=== PATIENT | male | born 1940 | race Caucasian/White ===

== ENCOUNTER → 2017-11-03 | Outpatient (CLI) | payer MEDICARE ==
[~2017-11-03] MED LIST: ALPH600C PO; CYAN100 PO; DILT240C44 PO; GABA400C5 PO; MULTTAB67 PO; NEXI40CA PO; VITA100T10 PO
--- NOTE | 2017-11-03 11:05 | RADRPT ---
EXAM DATE/TIME: 11/03/2017 10:39 [place] COMPARISON: No previous studies available for comparison. INDICATIONS : Evaluate for pneumonia, pneumothorax, and communicable disease. Pre op for right shoulder repair. MEDICAL HISTORY : Cardiovascular disease. SURGICAL HISTORY : Pacemaker. ENCOUNTER: Initial ACUITY: 1 day PAIN SCORE: 0/10 LOCATION: Bilateral chest FINDINGS: PA and lateral views of the chest demonstrate the lungs to be symmetrically aerated without evidence of mass, infiltrate or effusion. The cardiomediastinal contours are unremarkable. Osseous structure s are intact. CONCLUSION: No acute disease. Kenrick Martinez MD on November 03, 2017 at 11:03 Board Certified Radiologist. This report was verified electronically.
[2017-11-03 11:37] LABS: AUTOMATED NEUTROPHIL # 5.9 TH/MM3 (1.8-7.7); BASOPHIL % 0.4 % (0.0-2.0); EOSINOPHIL # 0.1 TH/MM3 (0-0.4); EOSINOPHIL % 1.7 % (0.0-4.0); HEMATOCRIT 42.1 % (39.0-51.0); HEMOGLOBIN 14.8 GM/DL (13.0-17.0); LYMPH % 15.9 % (9.0-44.0); LYMPHOCYTE # 1.3 TH/MM3 (1.0-4.8); MEAN CELL VOLUME 87.1 FL (80.0-100.0); MEAN CORPUSCULAR HEMOGLOBIN 30.5 PG (27.0-34.0); MEAN PLATELET VOLUME 7.8 FL (7.0-11.0); MONO % 7.6 % (0.0-8.0); MONOCYTE # 0.6 TH/MM3 (0-0.9); NEUT % 74.4 % (16.0-70.0); PLATELET COUNT 228 TH/MM3 (150-450); RED BLOOD COUNT 4.84 MIL/MM3 (4.50-5.90); RED CELL DISTRIBUTION WIDTH 14.4 % (11.6-17.2); WHITE BLOOD COUNT 7.9 TH/MM3 (4.0-11.0)
[2017-11-03 11:39] LABS: BILIRUBIN, URINE NEG (NEG); BLOOD, URINE NEG (NEG); GLUCOSE,URINE NEG (NEG); HYALINE CAST, URINE 1 /lpf (RARE); KETONE, URINE NEG (NEG); MUCUS URINE FEW /lpf (OCC); NITRITE,URINE NEG (NEG); PH, URINE 6.5 (5.0-8.5); SQUAMOUS EPITHELIAL CELL URINE <1 /hpf (0-5); URINE COLOR YELLOW (YELLW/STRAW); URINE LEUKOCYTE ESTERASE TRACE (NEG)
[2017-11-03 11:45] LABS: PROTHROMBIN TIME - PATIENT 10.4 SEC (9.8-11.6)
[2017-11-03 11:56] LABS: BICARBONATE 29.6 MEQ/L (21.0-32.0); CALCIUM 9.2 MG/DL (8.5-10.1); CREATININE 1.09 MG/DL (0.60-1.30)
== END ==
LOC: CPRE 09:40
PROVIDERS: ATTEND Orthopaedic Surgery
DX: Z01.812 Encounter for preprocedural laboratory examination (principal); Z01.811 Encounter for preprocedural respiratory examination; M75.121 Complete rotator cuff tear or rupture of right shoulder, not specified as traumatic; M19.011 Primary osteoarthritis, right shoulder
CPT/HCPCS: 36415; 71046; 80048; 81001; 85025; 85610

== ENCOUNTER → 2017-11-19 | Day surgery (SDC) | payer MEDICARE ==
--- NOTE | 2017-11-15 14:24 | MH ---
cc: MASON GRULLON M.D. DATE OF ADMISSION: 11/19/2017 ADMITTING DIAGNOSIS Complete rotator cuff tear of the right shoulder, acromioclavicular arthrosis right shoulder, glenohumeral arthrosis right shoulder, pain right shoulder. HISTORY OF PRESENT ILLNESS The patient is a 77-year-old white male who has experienced almost a 6-month history of pain involving his right shoulder. He associated the onset of his symptoms with increased activity at home when he was involved in cleaning up following the events of [place]. He had sustained a lifting stress while trying to move a gas tank, being uncertain as to the actual weight of the container but being aware of generalized soreness about the shoulder area. He initiated physical therapy intervention as a self-referral that he had completed, being unable to appreciate any complete resolution of his shoulder discomfort. He was later seen by the undersigned physician in September of this year and at that time reported ongoing pain about the shoulder with limited mobility, especially with overhead posturing of his right hand. He had been taking Gabapentin for a history of peripheral neuropathy of undetermined etiology, but otherwise reported no prior history of problems involving his right shoulder area. His x-ray studies at that time were without evidence of acute bony abnormality. There was some minimal hypertrophic reaction about the inferior margin of the articular surface of the humeral head and minimal sclerotic reaction about the greater tuberosity. There was preservation of the subacromial space. The patient elected to proceed with additional diagnostic evaluation which included a CT scan of the right shoulder with contrast, the results of which identified a prominent full-thickness distal supraspinatus tendon tear measuring 3 cm in medial to lateral dimension and 2.4 cm in anterior to posterior dimension. There was moderately severe acromioclavicular joint arthrosis and glenohumeral joint arthrosis with moderately severe central chondromalacia. The patient remained symptomatic with pain generalized about the shoulder area for which the findings of the scan were reviewed and treatment options discussed. The pros and cons of continuing with conservative management versus operative intervention that would involve an acromioplasty of the right shoulder with an attempted mini open rotator cuff repair versus reverse shoulder arthroplasty. The pluses and minuses of each of these surgical procedures was reviewed with emphasis being made that the decision to proceed with surgery would be left entirely to the patient's discretion. At that time the patient indicated his preference for the acromioplasty and the attempted rotator cuff repair in the hope that it might be successfully repaired. In compliance with his wishes he has currently been scheduled for admission in order that the above be accomplished. He is right-hand dominant. PAST MEDICAL HISTORY/HOSPITALIZATIONS AND SURGERIES Have included: 1. Right total knee arthroplasty. 2. Pacemaker insertion. 3. Tonsillectomy. 4. Appendectomy. 5. Left cataract excision with intraocular lens implants. 6. Colonoscopy. MEDICAL ILLNESSES 1. Heart disease. 2. Acid reflux. 3. Peripheral neuropathy of undetermined etiology. MEDICATION His current medications: 1. Diltiazem 240 mg daily. 2. Nexium one daily. 3. Gabapentin 400 mg daily. 4. Vitamin B 600 mg daily. 5. Vitamin B12 100 mg daily. 6. Alpha lipoic acid 600 mg twice daily. 7. Multivitamin tablet daily. ALLERGIES The patient denies any known drug allergies. REVIEW OF SYSTEMS He wears glasses for reading purposes. Denies headache, seizure or syncope. No sinus congestion or epistaxis. Diminished auditory acuity. No tinnitus, bleeding gums or dysphagia. Complete upper dental caps, no cough, shortness of breath, upper respiratory infection, pneumonia or tuberculosis. No angina. He is status post pacemaker insertion. Appetite good, bowel movements are regular. There is a history of hiatal hernia. No hepatitis, gallbladder disease, ulcers or hemorrhoids. No urinary tract infection. No kidney stones. Positive history for benign prostatic hypertrophy. No fractures. No psychiatric illness. Remaining review of systems is unremarkable and noncontributory. FAMILY HISTORY 21 years, 55 years of age and described as being in good health. He has one son indicated to be in good health. Family history is otherwise positive for prostate cancer. 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 He completed a high school education. He denies active use of tobacco since 2000 but had been a 40 pack-year user prior to that time. Ethanol consumption on a very rare occasion in the form of a glass of wine. PHYSICAL EXAMINATION Height 6 feet, weight 199 pounds. An alert, oriented and responsive 77-year-old white male who sits quietly upon the examination table with no obvious distress. HEENT: Pupils are equally round and reactive to light. Extraocular movements full. Sclerae clear. External nares clear. External auditory canals clear. Semi edentulous in both maxillary and mandibular distribution with dental bridge in place in the maxillary region. Mucous membranes pink and moist. Pharynx clear. NECK: Supple. Active range of motion without appreciable pain. Carotid pulse palpable bilaterally. Trachea midline. Thyroid without enlargement. LUNGS: Clear to auscultation and percussion. No CVA tenderness. No discomfort throughout the dorsal lumbar spine. HEART: Regular rhythm. No murmur or gallop. ABDOMEN: Abdomen is soft, nontender. Bowel sounds present. RECTAL: Per primary care physician. EXTREMITIES: Right shoulder, there is no localizing tenderness about the shoulder area. The patient demonstrates obvious effort and discomfort as he attempts to actively elevate his right hand above his head which he is able to accomplish. Similar effort is noted with internal rotation to the posterior waist level. Cross-arm positioning of right hand to left shoulder unremarkable. No sensation of crepitation or instability about the glenohumeral joint. Drop arm test is minimally positive. Bach sign positive. Weakness of external rotation. Belly press negative. Title Manager strength intact. Sensory intact. NEUROLOGIC: Cranial nerves II-XII grossly intact. IMPRESSION Complete rotator cuff tear right shoulder, acromioclavicular arthrosis right shoulder, glenohumeral joint arthrosis right shoulder, pain right shoulder. PLAN Acromioplasty right shoulder with an attempt at mini open rotator cuff repair. The nature of the planned surgical procedure, the potential complications and risks associated, the expectations of surgery and the consent form were thoroughly reviewed with the patient in the presence of his prior to admission to the hospital. Kenrick has indicated his full understanding regarding all of the above and given consent to proceed with treatment as outlined. Medical evaluation and clearance for surgery will be completed by his primary care physician Dr. Edmonds, cardiology clearance per Dr. Harrington. Mason Grullon MD NBS/TLL /1:42 PM /1:55 PM
[~2017-11-19] VITALS: Ht 182.9 cm; Wt 91.7 kg
[~2017-11-19] MED LIST changes: +*ONDANSETRON 4 MG VIAL PERIprocedural Use ONLY ONE; +ACETAMINOPHEN 1000 MG/100 ML 100 ML IV ONE; +ACETAMINOPHEN/HYDROcodone 325 MG/5 MG TAB PO PRN; +BUPIVACAINE HCL PF 0.5% 30 ML VIAL ONE; +BUPIVACAINE/EPINEPHRINE 0.25% 50 ML VIAL ONE; +CHLORHEXIDINE GLUCONATE 2 % 1 PACK (2 CLOTHS) TOPICAL PRN; +DEXAMETHASONE SOD PHOS 4 MG/ML VIAL IV ONE; +DO NOT ADM ANY ANTICOAGULANT DRUGS PRN; +FAT EMULSION 20% INJ 0 ML ONE; +GLYCOPYRROLATE 1 MG/5 ML SYRINGE IV PUSH ONE; +LACTATED RINGER'S 1000 ML IV PRN; +LIDOCAINE HCL 1% PF 5 ML AMPULE ONE; +LIDOCAINE HCL 1% PF 5 ML SYRINGE OTHER ONE; +METOPROLOL TARTRATE 25 MG TAB PO PRN; +MORPHINE SULFATE 10 MG/ML INJ IM PRN; +NEOSTIGMINE 5 MG/5 ML SYRINGE IV PUSH ONE; +ONDANSETRON HCL 4 MG/2 ML VIAL IV PUSH ONE; +PHENYLEPH/NS 1000 MCG/10 ML SYR IV ONE; +POVIDONE IODINE 5% (ANTISEPSIS KIT) 4 APPLICATIONS EACH NARE PRN; +POVIDONE IODINE 7.5% SCRUB 118 ML BOTTLE TOPICAL SCH; +PROMETHAZINE INJ 25 MG/ML VIAL IM PRN; +PROPOFOL 200 MG/20 ML AMP IV ONE; +ROCURONIUM INJ 50 MG/5 ML SYRINGE IV PUSH ONE; +SODIUM CHLORID 0.9% 500 ML IV PRN; +ceFAZolin 2 GM PREMIX 50 ML IV SCH; +ePHEDrine/NS 25 MG/5 ML SYRINGE IV ONE
[2017-11-19 11:00] VITALS: BP 120/75; PULSE 63; RESP 20; TEMP 97.6; O2SAT 92
--- NOTE | 2017-11-21 19:09 | MP ---
cc: MASON GRULLON DATE OF SURGERY: 11/21/2017. PREOPERATIVE DIAGNOSIS: 1. Complete rotator cuff tear of the right shoulder. 2. Acromioclavicular joint arthrosis, right shoulder. 3. Glenohumeral arthrosis, right shoulder. 4. Pain, right shoulder. POSTOPERATIVE DIAGNOSIS: 1. Complete rotator cuff tear of the right shoulder. 2. Acromioclavicular joint arthrosis, right shoulder. 3. Glenohumeral arthrosis, right shoulder. 4. Pain, right shoulder. OPERATIVE PROCEDURE PERFORMED: Acromioplasty of the right shoulder with mini open rotator cuff repair. SURGEON: Mason Grullon MD. ANESTHESIA: General endotracheal anesthesia. FORMAT / DESCRIPTION OF THE PROCEDURE IN DETAIL: Following the induction of satisfactory general anesthesia by endotracheal intubation as completed per the department of anesthesia, the patient was positioned upon the operating table in a modified beach-chair configuration. The right shoulder and upper extremity proper were isolated with a U drape, a sheet roll having been established along the vertebral border of the right scapular region. The right shoulder and upper extremity proper were prepped with Betadine solution and draped into a sterile field in the routine manner. Prior to initiation of the actual procedure, the standard time-out protocol was completed and all parameters were appropriately addressed and confirmed by operating room personnel. A sharp skin incision was initiated superiorly along the lateral margin of the acromion and developed through underlying subcutaneous tissue with hemostasis maintained by electrocautery. By deepening dissection, the underlying deltoid musculature was exposed along its anterior raphe. The deltoid was divided in a medial to lateral orientation facilitating entry into the subacromial space. There was prominence of the anterior margin of the acromion. An oblique osteotomy was accomplished utilizing a power saw, the undersurface of which was contoured with bone rasp. Visual and digital inspection thereafter confirmed an adequate decompression within the confines of the subacromial space. Examination of the deeper structures revealed a complete disruption of the supraspinatus tendon in a vertical orientation extending towards the glenoid area. Subacromial bursal tissue was debrided and thereafter the margins of the tear were mobilized and then a primary repair completed utilizing interrupted #0 Polydek suture. Upon completion of same, the shoulder was carried through a passive range of motion, stability of the rotator cuff was noted as well as no evidence of any residual impingement. The shoulder joint was thoroughly lavaged. The deltoid was thereafter repaired with interrupted #0 Polydek suture. The remaining portion of the wound was closed in layers in the routine manner, skin margins being reapproximated with a running subcuticular 3-0 Vicryl suture over which Steri-Strips were applied. Xeroform gauze and a bulky dry sterile dressing were placed. The extremity was supported in an arm sling. Anesthesia was discontinued. The patient was thus transferred to a hospital stretcher and returned to the recovery room in satisfactory condition having tolerated his operative procedure well. Estimated blood loss was less than 25 mL as determined per anesthesia. MD MIKY Lowry/JCScott /8:30 AM /6:59 PM
== END | disposition home or self-care (01) ==
LOC: HSDC 05:20
PROVIDERS: ATTEND Orthopaedic Surgery
DX: M75.121 Complete rotator cuff tear or rupture of right shoulder, not specified as traumatic (principal); M19.011 Primary osteoarthritis, right shoulder; G62.9 Polyneuropathy, unspecified; K21.9 Gastro-esophageal reflux disease without esophagitis; Z95.0 Presence of cardiac pacemaker
CPT/HCPCS: 01630; 23420; 64415; 76937; J0131; J0690; J1100; J2370; J2405; J2710; J3010; J7120; L1830